=== PATIENT | female | born 1960 | race American Indian/Alaskan Native ===

== ENCOUNTER 2016-10-03 06:23 | Outpatient (CLI) | payer BC ==
--- NOTE | 2016-10-04 08:34 | XRay Report ---
Right thumb: The patient apparently has focal pain over the metacarpal however the bone appears intact with good mineralization. A small cortical cyst is noted at the base of the metacarpal and there is a small erosion at the base of the middle phalanx. The findings otherwise appear generally unremarkable. There are no soft tissue abnormalities identified. Impression: No acute findings. Mild degenerative changes.
== END 2016-10-03 06:24 | disposition home or self-care (01) ==
LOC: XRAY 06:23
PROVIDERS: ATTEND Internal Medicine
DX: M85.48 Solitary bone cyst, other site (principal); M85.88 Other specified disorders of bone density and structure, other site

== ENCOUNTER 2016-11-23 07:29 | Outpatient (CLI) | payer BC ==
--- NOTE | 2016-11-23 16:00 | Ultrasound Report ---
Ultrasound of the right upper quadrant. Findings: In the right lobe of the liver, there is a 2.0 x 1.6 cm somewhat rounded area of increased echogenicity, fairly well circumscribed. No other focal hepatic abnormal this are seen. Multiple gallstones are present. Wall of gallbladder is not thickened. Common bile duct is normal in caliber. The right kidney and pancreas are unremarkable. Impression: 1. Cholelithiasis. 2. 2 x 1.6 cm echogenic structure in the right lobe of the liver probably represents a hemangioma, but is nonspecific.
== END 2016-11-23 07:30 | disposition home or self-care (01) ==
LOC: US 07:29
PROVIDERS: ATTEND Internal Medicine Gastroenterology
DX: K80.20 Calculus of gallbladder without cholecystitis without obstruction (principal)
CPT/HCPCS: 76705

== ENCOUNTER 2016-12-08 11:28 | Outpatient (CLI) | payer BC ==
--- NOTE | 2016-12-08 14:22 | Nuclear Medicine Report ---
HIDA INDICATION: Right liver lesion. Bloating, possible history of stones. COMPARISON: None similar. FINDINGS: Dynamic right upper quadrant imaging performed in the anterior projection over 120 minutes following uneventful intravenous administration of 5 mCi of Technetium 99m Choletec. Prompt and homogenous hepatic radiotracer uptake with subsequent washout seen with gallbladder activity noted reliably at 90 minutes while bowel activity seen conclusively at 30 minutes. Right hemidiaphragm may be elevated. No CCK given due to the current nonavailability with gallbladder ejection fraction not calculated. CONCLUSION: Normal exam, as described. Thank you for the opportunity to participate in this patient's care.
[2016-12-08 14:24] LABS: Blood Urea Nitrogen 15 mg/dL (7-17)
--- NOTE | 2016-12-10 13:30 | Magnetic Resonance Report ---
MRI ABDOMEN WITHOUT AND WITH CONTRAST : 12/08/16 14:00:00 CLINICAL: Liver mass. COMPARISON :11/23/16 ultrasound and 10/03/12 CT abdomen TECHNIQUE: Axial T1 in phase and opposed phase, coronal and axial T2 and axial T2 fat sat sequences plus multiphase postcontrast T1 fat sat sequences on a 1.5 Esme magnet. 15.0 cc of Multihance was injected intravenously for the contrast portion of the exam and consent was obtained prior to the administration of the contrast. FINDINGS: Normal liver size, contour and overall signal. A 1.7 x 1.6 cm slightly irregular mass of the right lobe of the liver at the dome is not changed in size since 2012. It demonstrates minimal enhancement postcontrast. No central enhancement. There is minimal peripheral enhancement which slightly decreases the size of the lesion at five minutes. It is hyperintense on T2 and hypointense on T1. No other liver lesions are identified. The gallbladder and bile ducts are normal. Normal stomach, duodenum, pancreas and spleen. The adrenal glands are normal. Bilateral renal cysts. The largest is in the midportion of the right kidney measures 1.6 cm. No ascites. The aorta and inferior vena cava are normal. Imaged portions of small bowel and colon are normal. IMPRESSION: 1. A benign 1.7 cm right hepatic mass. The enhancement pattern is not typical of a benign cavernous hemangioma but it has not changed in size or shape since 2012. 2. Benign renal cysts.
== END 2016-12-08 11:29 | disposition home or self-care (01) ==
LOC: NM 11:28
PROVIDERS: ATTEND Internal Medicine Gastroenterology
DX: K80.20 Calculus of gallbladder without cholecystitis without obstruction (principal); R14.0 Abdominal distension (gaseous); N28.1 Cyst of kidney, acquired; K76.89 Other specified diseases of liver; Q79.1 Other congenital malformations of diaphragm
CPT/HCPCS: 36415; 74183; 78226; 82565; 84520; A9537; A9577

== ENCOUNTER 2017-01-17 13:14 | Outpatient (CLI) | payer BC ==
--- NOTE | 2017-01-17 14:15 | Cat Scan Report ---
CT of the paranasal sinuses. History: Chronic sinusitis. Findings: The paranasal sinuses are clear. The osteomeatal complexes are patent. No air-fluid levels are seen. There is deviation of the nasal septum to the left. No significant bony findings are seen. The globes are symmetrical. No signs of orbital pathology. Impression: Nasal septal deviation, otherwise normal study.
--- NOTE | 2017-01-17 14:18 | Cat Scan Report ---
CT of the chest without contrast. History: Asthma. Findings: The mediastinum and hilar structures are normal. The lungs are clear. There is no pleural fluid. Extensive osteophytes are seen in the lower dorsal spine. Images which include a portion of the upper abdomen reveal multiple gallstones. Impression: Unremarkable CT of the chest. 2. Incidental findings of multiple gallstones and severe discogenic changes in the lower dorsal spine are described.
== END 2017-01-17 13:15 | disposition home or self-care (01) ==
LOC: CT 13:14
PROVIDERS: ATTEND Family Medicine
DX: J45.20 Mild intermittent asthma, uncomplicated (principal); J32.0 Chronic maxillary sinusitis; M25.78 Osteophyte, vertebrae; J34.2 Deviated nasal septum; K80.20 Calculus of gallbladder without cholecystitis without obstruction
CPT/HCPCS: 70486; 71250

== ENCOUNTER 2017-04-22 08:47 | Emergency (ER) | payer BC ==
[2017-04-22] MEDS ORDERED: ANTIVERT PO ONE (10:02)
--- NOTE | 2017-04-22 10:02 | Emergency Department Report ---
ED Dizziness HPI - General Chief Complaint: Dizziness Stated Complaint: DIZZY,NAUSEA Time Seen by Provider: 04/22/17 09:53 Source: patient Mode of arrival: Ambulatory Limitations: No Limitations - History of Present Illness MD Complaint: dizziness -: This morning Timing: awoke with symptoms Description: sense of movement, nausea History of Same: Yes (3 years ago) Severity: moderate Improves With: remaining still Worsens With: movement, position Associated Symptoms: denies: chest pain - Related Data Home Medications Medication Instructions Recorded Confirmed Last Taken Atenolol/Chlorthalidone [Tenoretic 1 tab PO DAILY 01/30/14 01/30/14 01/30/14 50-25 mg] Previous Rx's Medication Instructions Recorded Last Taken Type Gentamicin 0.3% Ophth Soln 2 drops OP Q4H #1 bottle 01/31/14 Unknown Rx HYDROcodone/APAP 5-325 [[place] 1 each PO Q6HR PRN #15 tablet 01/31/14 Unknown Rx 5/325 mg] Meclizine [Antivert] 25 mg PO TID PRN #30 tablet 04/22/17 Unknown Rx Allergies Allergy/AdvReac Type Severity Reaction Status Date / Time No Known Allergies Allergy Verified 04/22/17 09:05 ED Review of Systems ROS: Stated complaint: DIZZY,NAUSEA Other details as noted in HPI Comment: All other systems reviewed and negative Constitutional: denies: chills, fever ENT: denies: ear pain, throat pain, hearing loss, congestion Respiratory: denies: cough, orthopnea, shortness of breath, SOB with exertion Cardiovascular: denies: chest pain, palpitations, dyspnea on exertion, orthopnea Gastrointestinal: denies: nausea, vomiting Neurological: vertigo. denies: headache, paresthesias ED Past Medical Hx - Past Medical History Hx Hypertension: Yes Hx GERD: Yes ("SILENT REFLUX") Hx Asthma: Yes Additional medical history: ALLERGIES - Surgical History Additional Surgical History: - Social History Smoking Status: Never Smoker Substance Use Type: None - Medications Home Medications: Home Medications Medication Instructions Recorded Confirmed Last Taken Type Atenolol/Chlorthalidone [Tenoretic 1 tab PO DAILY 01/30/14 01/30/14 01/30/14 History 50-25 mg] Gentamicin 0.3% Ophth Soln 2 drops OP Q4H #1 bottle 01/31/14 Unknown Rx HYDROcodone/APAP 5-325 [[place] 1 each PO Q6HR PRN #15 tablet 01/31/14 Unknown Rx 5/325 mg] Meclizine [Antivert] 25 mg PO TID PRN #30 tablet 04/22/17 Unknown Rx ED Physical Exam - General Limitations: No Limitations General appearance: alert, in no apparent distress - Head Head exam: Present: atraumatic, normocephalic - Eye Eye exam: Present: normal appearance, PERRL, EOMI Pupils: Present: normal accommodation - ENT ENT exam: Present: normal exam, normal orophraynx, mucous membranes moist - Neck Neck exam: Present: normal inspection. Absent: tenderness, meningismus, full ROM - Respiratory Respiratory exam: Present: normal lung sounds bilaterally. Absent: respiratory distress, wheezes, rales, rhonchi, stridor, chest wall tenderness, accessory muscle use, decreased breath sounds, prolonged expiratory - Cardiovascular Cardiovascular Exam: Present: regular rate, normal rhythm, normal heart sounds - GI/Abdominal GI/Abdominal exam: Present: soft. Absent: distended, tenderness, guarding, rebound, rigid, normal bowel sounds - Back Exam Back exam: Present: normal inspection. Absent: CVA tenderness (R), CVA tenderness (L) - Neurological Exam Neurological exam: Present: alert, oriented X3, CN II-XII intact, normal gait. Absent: motor sensory deficit, reflexes normal - Skin Skin exam: Present: warm, intact, normal color ED Course Vital Signs 04/22/17 04/22/17 04/22/17 08:58 09:21 09:53 Temperature 98.2 F 98.6 F 98.5 F Pulse Rate 96 H 90 88 Respiratory 17 16 12 Rate Blood Pressure 158/99 Blood Pressure 132/73 130/72 [Left] O2 Sat by Pulse 98 100 97 Oximetry 04/22/17 12:10 Temperature 98.6 F Pulse Rate 91 H Respiratory 19 Rate Blood Pressure Blood Pressure 105/60 [Left] O2 Sat by Pulse 100 Oximetry - Reevaluation(s) Reevaluation #1: 04/22/17 14:19 Patient stated that she is feeling much better dizziness is almost gone advised patient to follow up with her primary care physician. ED Medical Decision Making - Lab Data Result diagrams: 04/22/17 09:49 04/22/17 09:49 Critical care attestation.: If time is entered above; I have spent that time in minutes in the direct care of this critically ill patient, excluding procedure time. ED Disposition Clinical Impression: Dizziness Disposition: DC-01 TO HOME OR SELFCARE Is pt being admited?: No Condition: Stable Instructions: Vertigo (ED) Referrals: PRIMARY CARE, [Primary Care Provider] - 3-5 Days
[2017-04-22 10:06] LABS: Basophils % (Auto) 0.9 % (0.0-1.8); Eosinophils % (Auto) 1.7 % (0.0-4.3); Hematocrit 38.6 % (30.3-42.9); Hemoglobin 12.9 gm/dl (10.1-14.3); Mean Corpuscular HGB Conc 34 % (30-34); Mean Corpuscular Hemoglobin 28 pg (28-32); Mean Corpuscular Volume 82 fl (79-97); Platelet Count 294 K/mm3 (140-440); Red Blood Count 4.68 M/mm3 (3.65-5.03); Red Cell Distribution Width 14.7 % (13.2-15.2); White Blood Count 6.7 K/mm3 (4.5-11.0)
[2017-04-22 10:22] LABS: Anion Gap 16 mmol/L; BUN/Creatinine Ratio 18.57; Blood Urea Nitrogen 13 mg/dL (7-17); Calcium 8.9 mg/dL (8.4-10.2); Carbon Dioxide 26 mmol/L (22-30); Chloride 101.9 mmol/L (98-107); Glucose 110 mg/dL (65-100); Potassium 4.1 mmol/L (3.6-5.0); Sodium 140 mmol/L (137-145)
--- NOTE | 2017-04-22 10:55 | Cat Scan Report ---
CT HEAD WITHOUT CONTRAST: 04/22/17 08:47:00 CLINICAL: Dizziness. TECHNIQUE: 2.5-mm noncontrast scans. COMPARISON:None FINDINGS: The ventricles and sulci are normal for age. No abnormal density. No mass or mass effect. No hemorrhage, edema or extra-axial collection. The sinuses are clear. Normal orbits and soft tissues. The calvarium and skull base are intact. IMPRESSION: Normal study.
[2017-04-22 12:05] LABS: Bacteria,Urine 1+ /HPF (Negative); Bilirubin,Urine NEG (Negative); Blood,Urine NEG (Negative); Ketones,Urine NEG (Negative); Leukocyte Esterase,Urine TR (Negative); Mucus,Urine 1+ /HPF; Nitrite,Urine NEG (Negative); Protein,Urine <15 mg/dL mg/dL (Negative); Urobilinogen,Urine < 2.0 mg/dL (<2.0)
[2017-04-22 12:15] VITALS: BP 105/60
== END 2017-04-22 13:50 | disposition home or self-care (01) ==
LOC: ED 08:47
DX: R42 Dizziness and giddiness (principal); K21.9 Gastro-esophageal reflux disease without esophagitis; J45.909 Unspecified asthma, uncomplicated
CPT/HCPCS: 36415; 70450; 80048; 81001; 82962; 84484; 85025; 93005; 93010

== ENCOUNTER 2018-01-14 13:09 | Outpatient (CLI) | payer BC ==
--- NOTE | 2018-01-14 21:43 | Cat Scan Report ---
FINAL REPORT EXAM: CT SINUSES WO CON HISTORY: CHRONIC SINUSITIS TECHNIQUE: Spiral CT scanning of the paranasal sinuses. Coronal reformations. PRIORS: 17 Jan 2017. FINDINGS: The visualized paranasal sinuses are normally aerated. No abnormal air-fluid levels, hyperostosis or bone destruction. Ostiomeatal units are patent bilaterally. Mild leftward bowing anterior and leftward spurring posterior nasal septum and normal appearing nasal turbinates. Normal nasal choanae, nasopharynx and orbits. Visualized skull base grossly unremarkable. IMPRESSION: 1. No acute findings.
--- NOTE | 2018-01-14 21:49 | Cat Scan Report ---
FINAL REPORT PROCEDURE: CT HEAD/BRAIN WO CON TECHNIQUE: Computerized tomography of the head was performed without contrast material. HISTORY: CHRONIC SINUSITIS COMPARISON: No prior studies are available for comparison. FINDINGS: Skull and scalp: Normal. Paranasal sinuses: Normal. Ventricles and subarachnoid spaces: Normal. Cerebrum: No evidence of hemorrhage, acute infarction or mass . Cerebellum and brainstem: No evidence of hemorrhage, acute infarction or mass. Vasculature: Normal. Comments: None. IMPRESSION: There is no intracranial hemorrhage, edema, mass, mass effect or midline shift. The sinuses are clear.
== END 2018-01-14 13:10 | disposition home or self-care (01) ==
LOC: CT 13:09
PROVIDERS: ATTEND Internal Medicine
DX: J32.0 Chronic maxillary sinusitis (principal); J34.2 Deviated nasal septum; I10 Essential (primary) hypertension; E03.9 Hypothyroidism, unspecified; E78.00 Pure hypercholesterolemia, unspecified; K21.9 Gastro-esophageal reflux disease without esophagitis; J45.20 Mild intermittent asthma, uncomplicated
CPT/HCPCS: 70450; 70486

== ENCOUNTER 2019-01-28 09:57 | Outpatient (CLI) | payer BC ==
[2019-01-28 11:12] LABS: Free T4 (Free Thyroxine) 1.02 ng/dL (0.76-1.46)
== END 2019-01-28 09:58 | disposition home or self-care (01) ==
LOC: LAB 09:57
PROVIDERS: ATTEND Internal Medicine
DX: R94.6 Abnormal results of thyroid function studies (principal); I10 Essential (primary) hypertension; J45.909 Unspecified asthma, uncomplicated; K21.9 Gastro-esophageal reflux disease without esophagitis
CPT/HCPCS: 36415; 84439; 84443; 84480

== ENCOUNTER 2019-06-02 06:28 | Outpatient (CLI) | payer BC ==
[2019-06-02 06:50] LABS: Hemoglobin 13.7 gm/dl (10.1-14.3)
[2019-06-02 07:06] LABS: Mean Corpuscular HGB Conc 34 % (30-34); Mean Corpuscular Volume 83 fl (79-97); Platelet Count 367 K/mm3 (140-440); Red Blood Count 4.94 M/mm3 (3.65-5.03); Red Cell Distribution Width 15.4 % (13.2-15.2)
[2019-06-02 07:10] LABS: Alanine Aminotransferase 14 units/L (7-56); BUN/Creatinine Ratio 21; Blood Urea Nitrogen 17 mg/dL (7-17); Calcium 9.4 mg/dL (8.4-10.2); Chol/HDL Ratio 2.58 %; HDL Cholesterol 58 mg/dL (40-59); Hemolysis Index 22; LDL Cholesterol,Direct 83 mg/dL (50-130)
== END 2019-06-02 06:29 | disposition home or self-care (01) ==
LOC: LAB 06:28
PROVIDERS: ATTEND Internal Medicine
DX: E78.5 Hyperlipidemia, unspecified (principal); I10 Essential (primary) hypertension; D58.2 Other hemoglobinopathies; R79.89 Other specified abnormal findings of blood chemistry; R68.89 Other general symptoms and signs; J45.909 Unspecified asthma, uncomplicated; K21.9 Gastro-esophageal reflux disease without esophagitis
CPT/HCPCS: 36415; 80053; 80061; 83036; 85027

== ENCOUNTER 2019-09-02 09:16 | Outpatient (CLI) | payer BC ==
[2019-09-02 10:27] LABS: Blood Urea Nitrogen 17 mg/dL (7-17)
--- NOTE | 2019-09-02 12:57 | Cat Scan Report ---
CT abdomen w con INDICATION: ABDOMINAL PAIN. TECHNIQUE: All CT scans at this location are performed using CT dose reduction for ALARA by means of automated e xposure control. COMPARISON: No prior CT exams. Compared with MRI abdomen dated 12/08/2016 FINDINGS: Lung bases are clear. 1.7 cm low-attenuation lesion in the superior right hepatic lobe demonstrates p eripheral enhancement, suggestive of hemangioma. (No delayed images were obtained.) No additional rex er lesions. Spleen, pancreas, kidneys and adrenals are negative. Incidental bilateral renal cysts. Gallbladder co ntains at least one fairly large stone. No appreciable gallbladder wall thickening or pericholecystic edema. Abdominal aorta is normal in size. No adenopathy. Pelvis Normal appendix. Urinary bladder and distal ureters are negative. Uterus and ovaries appear unremarka ble. No free fluid or patient. No significant skeletal lesions. IMPRESSION: 1. 1.7 cm right hepatic lobe lesion is unchanged since November 2016 and is thought to represent a benig n hemangioma. 2. Cholelithiasis without evidence of cholecystitis. 3. No acute abnormalities. Signer Name: Alejandro Burgos MD Signed: 09/02/2019 12:53 PM Workstation Name: [id number]
== END 2019-09-02 09:17 | disposition home or self-care (01) ==
LOC: CT 09:16
PROVIDERS: ATTEND Internal Medicine
DX: K80.20 Calculus of gallbladder without cholecystitis without obstruction (principal)
CPT/HCPCS: 36415; 74160; 82565; 84520; Q9967

== ENCOUNTER 2019-10-29 08:31 | Day surgery (SDC) | payer BC ==
[~2019-10-29 08:31] MED LIST: SODIUM CHLORIDE 0.9% 1000 ML 1,000 ML IV SCH
--- NOTE | 2019-10-29 09:45 | Anesthesia Day of Surgery ---
Anesthesia Day of Surgery - Day of Surgery Patient Examined: Yes Patient H&P Reviewed: Yes Patient is NPO: Yes
--- NOTE | 2019-10-29 09:46 | Anesthesia Consultation ---
Anesthesia Consult and Med Hx Date of service: 10/29/19 - Airway Anesthetic Teeth Evaluation: Chipped, Partials ROM Head & Neck: Adequate Mental/Hyoid Distance: Adequate Mallampati Class: Class II Intubation Access Assessment: Good - Pulmonary Exam CTA: Yes - Cardiac Exam Cardiac Exam: RRR - Pre-Operative Health Status ASA Pre-Surgery Classification: ASA2 Proposed Anesthetic Plan: MAC - Pulmonary Hx Asthma: Yes - Cardiovascular System Hx Hypertension: Yes
[2019-10-29] MEDS ORDERED: propofoL 200 MG/20 ML VIAL IV ONE ×2 (11:23)
--- NOTE | 2019-10-29 11:42 | Short Stay Summary ---
Short Stay Documentation Date of service: 10/29/19 - History Principal diagnosis: Chronic GERD; screening for colorectal cancer H&P: obtained from office Past Medical History: GERD, other (asthma) Past Surgical History: Other (no changes) Social history: no significant social history - Allergies and Medications Current Medications: Allergies No Known Allergies Allergy (Verified 04/22/17 09:05) Home Medications Medication Instructions Recorded Confirmed Last Taken Type Bisoprolol-Hctz 10-6.25 mg Tab 1 tab PO DAILY 10/29/19 10/29/19 10/29/19 History Lisinopril 10 mg PO DAILY 10/29/19 10/29/19 10/29/19 History Montelukast 10 mg PO DAILY 10/29/19 10/29/19 10/19/19 History Pantoprazole 40 mg PO DAILY 10/29/19 10/29/19 10/19/19 History Vitamin D3 3,000 unit 1 tab PO DAILY 10/29/19 10/29/19 10/19/19 History Zyrtec 10mg tab 1 tab PO DAILY 10/29/19 10/29/19 10/19/19 History Active Medications Sodium Chloride (Nacl 0.9% 1000 Ml) 1,000 mls @ 50 mls/hr IV DIRECT VIOLETTA Last Admin: 10/29/19 09:56 Dose: 50 mls/hr Documented by: - Physical exam General appearance: no acute distress Lungs: Clear to auscultation Heart: Regular rate Gastrointestinal: normal - Brief post op/procedure progress note Date of procedure: 10/29/19 Pre-op diagnosis: chronic GERD, screening for colorectal cancer Post-op diagnosis: same Procedure: EGD Colonoscopy with biopsy polypectomy Anesthesia: MAC Findings: EGD: normal Colonoscopy: cecal polyp removed Surgeon: LIZZY PAYAN Estimated blood loss: minimal Pathology: list (Jar A - cecal polyp) Specimen disposition: to lab Condition: stable - Disposition Condition at discharge: Good Disposition: DC-01 TO HOME OR SELFCARE Short Stay Discharge Plan Follow up with: BRODERICK CANALES MD [Primary Care Provider] - 7 Days
--- NOTE | 2019-10-29 11:43 | Operative Report ---
Operative Report Operative Report: Esophagogastroduodenoscopy Procedure Note Date of procedure: 10/29/2019 Endoscopist: Serafin Randle Pre-op diagnosis/indication: GERD, abdominal pain Post-op diagnosis: Normal endoscopy MEDICATIONS: MAC COMPLICATIONS: No immediate complications ESTIMATED BLOOD LOSS: None DESCRIPTION OF PROCEDURE: After consent was obtained, the patient was placed in the left lateral decubitis position. The olympus endoscope was inserted into the patient's mouth under direct vision and advanced to the 2nd portion of the duodenum without difficulty. The patient tolerated the procedure well. The views of the mucosa were good. The patient's vital signs were monitored continuously throughout the procedure. FINDINGS: The esophagus appeared normal. The stomach appeared normal. The visualized portion of the duodenum appeared normal. IMPRESSION: 1. Normal upper endoscopy RECOMMENDATIONS: -continue current medications -follow-up in GI clinic as scheduled
--- NOTE | 2019-10-29 11:45 | Operative Report ---
Operative Report Operative Report: Colonoscopy Procedure Note with biopsy polypectomy Date of procedure: 10/29/2019 Endoscopist: Serafin Randle Pre-op diagnosis/indication: Screening for colorectal cancer Post-op diagnosis: Colon polyp removed MEDICATIONS: MAC COMPLICATIONS: No immediate complications ESTIMATED BLOOD LOSS: Minimal DESCRIPTION OF PROCEDURE: After consent was obtained, the patient was placed in the left lateral decubitis position. The olympus colonoscope was inserted into the rectum and advanced to the cecum without difficulty. The patient tolerated the procedure well. The views of the mucosa were good. The quality of prep was good. The patients vital signs were monitored continuously throughout the p rocedure. FINDINGS: There was an ~2 mm sessile polyp in the cecum. The polyp was removed with cold biopsy forceps and retrieved. Internal hemorrhoids were visualized on retro-flexion view. IMPRESSION: 1. Small cecal polyp removed with cold biopsy forceps 2. Internal hemorrhoids RECOMMENDATIONS: -follow-up pathology -repeat colonoscopy in 5 years for surveillance
[2019-10-29 12:21] VITALS: BP 135/83
--- NOTE | 2019-10-29 14:40 | Post Anesthesia Evaluation ---
- Post Anesthesia Evaluation Patient Participated: Yes Airway Patent: Yes Stable Respiratory Function: Yes Nausea/Vomiting: No Temp > 96.8F: Yes Pain Manageable: Yes Adequeate Hydration: Yes Anesthesia Complications: No Block Receding Appropriately: Not Applicable Patient on Ventilator: No
== END 2019-10-29 08:32 | disposition home or self-care (01) ==
LOC: GIO 08:31
PROVIDERS: ATTEND Internal Medicine Gastroenterology
DX: R10.9 Unspecified abdominal pain (principal); K21.9 Gastro-esophageal reflux disease without esophagitis; D12.0 Benign neoplasm of cecum; R14.0 Abdominal distension (gaseous); K59.09 Other constipation; I10 Essential (primary) hypertension; K64.8 Other hemorrhoids; Z79.899 Other long term (current) drug therapy; J45.909 Unspecified asthma, uncomplicated; Z98.51 Tubal ligation status; Z98.890 Other specified postprocedural states; Z98.891 History of uterine scar from previous surgery
CPT/HCPCS: 43235; 45380; 88305; J2704; J7030

== ENCOUNTER 2020-02-03 22:58 | Emergency (ER) | payer BC ==
--- NOTE | 2020-02-03 23:54 | XRay Report ---
RIGHT TOES 4 VIEWS INDICATION / CLINICAL INFORMATION: toe deformitiy COMPARISON: None available. FINDINGS: BONES / JOINT(S): There is a fracture of the proximal phalanx of the fourth toe. There is dislocation of the fourth toe at the PIP joint with lateral angulation. No other fractures are seen. No signific ant arthritis. SOFT TISSUES: There is mild soft tissue swelling ADDITIONAL FINDINGS: None. Signer Name: Jeffrey Escobar MD Signed: 02/03/2020 11:50 PM Workstation Name: [id number]
[2020-02-04] MEDS ORDERED: BUPIVACAINE/PF (0.5%) 5 MG/1 ML 10 ML VIAL INFILTRATI ONE (00:46)
[2020-02-04] MEDS ORDERED: LIDOCAINE-MPF (1%) 10 MG/1 ML VIAL 5 ML INFILTRATI ONE (00:46)
--- NOTE | 2020-02-04 01:47 | Emergency Department Report ---
ED Lower Extremity HPI - General Chief Complaint: Extremity Injury, Lower Stated Complaint: RIGHT TOE PAIN Time Seen by Provider: 02/04/20 00:22 Source: patient Mode of arrival: Ambulatory Limitations: No Limitations - History of Present Illness Initial Comments: Patient is a 59-year-old female presents emergency room with complaints of a right fourth toe injury that occurred around 9 PM tonight. She states that she was walking barefoot and hit her toe against a wooden chair at home. She has an obvious deformity to the right fourth toe. She states that she is still able to partially move the toe. She denies any numbness or weakness. She denies ever injuring this right foot or toe in the past. She has a past medical history of asthma, GERD, hypertension. She denies any allergies to medications. - Related Data Home Medications Medication Instructions Recorded Confirmed Last Taken Bisoprolol-Hctz 10-6.25 mg Tab 1 tab PO DAILY 10/29/19 10/29/19 10/29/19 Lisinopril 10 mg PO DAILY 10/29/19 10/29/19 10/29/19 Montelukast 10 mg PO DAILY 10/29/19 10/29/19 10/19/19 Pantoprazole 40 mg PO DAILY 10/29/19 10/29/19 10/19/19 Vitamin D3 3,000 unit 1 tab PO DAILY 10/29/19 10/29/19 10/19/19 Zyrtec 10mg tab 1 tab PO DAILY 10/29/19 10/29/19 10/19/19 Previous Rx's Medication Instructions Recorded Last Taken Type traMADoL [Ultram 50 MG tab] 50 mg PO Q6HR PRN #10 tablet 02/04/20 Unknown Rx Allergies Allergy/AdvReac Type Severity Reaction Status Date / Time No Known Allergies Allergy Verified 04/22/17 09:05 ED Review of Systems ROS: Stated complaint: RIGHT TOE PAIN Other details as noted in HPI Comment: All other systems reviewed and negative ED Past Medical Hx - Past Medical History Previous Medical History?: Yes Hx Hypertension: Yes Hx GERD: Yes Hx Asthma: Yes Additional medical history: ALLERGIES - Surgical History Past Surgical History?: Yes Additional Surgical History: x1 - Social History Smoking Status: Never Smoker Substance Use Type: None - Medications Home Medications: Home Medications Medication Instructions Recorded Confirmed Last Taken Type Bisoprolol-Hctz 10-6.25 mg Tab 1 tab PO DAILY 10/29/19 10/29/19 10/29/19 History Lisinopril 10 mg PO DAILY 10/29/19 10/29/19 10/29/19 History Montelukast 10 mg PO DAILY 10/29/19 10/29/19 10/19/19 History Pantoprazole 40 mg PO DAILY 10/29/19 10/29/19 10/19/19 History Vitamin D3 3,000 unit 1 tab PO DAILY 10/29/19 10/29/19 10/19/19 History Zyrtec 10mg tab 1 tab PO DAILY 10/29/19 10/29/19 10/19/19 History traMADoL [Ultram 50 MG tab] 50 mg PO Q6HR PRN #10 tablet 02/04/20 Unknown Rx ED Physical Exam - General Limitations: No Limitations General appearance: alert, in no apparent distress - Head Head exam: Present: atraumatic, normocephalic - Eye Eye exam: Present: normal appearance - ENT ENT exam: Present: mucous membranes moist - Extremities Exam Extremities exam: Present: other (obvious deformity to the right 4th toe, there is edema and ttp of the right 4th toe, brisk cap refill, neurovascularly intact, no ttp of the other toes or the right foot, FROM of the right ankle and foot) - Neurological Exam Neurological exam: Present: alert, oriented X3 - Psychiatric Psychiatric exam: Present: normal affect, normal mood - Skin Skin exam: Present: warm, dry ED Course Vital Signs 02/03/20 02/04/20 23:02 02:41 Temperature 98.1 F Pulse Rate 101 H 96 H Respiratory 18 16 Rate Blood Pressure 179/93 O2 Sat by Pulse 96 Oximetry - Orthopedic Joint Reduction Joint #1 Consent Obtained: verbal consent Time Out Performed: Yes Side: right Joint Reduction Location: toe (4th) Analgesia: digital block Local Anesthetic Used: Lidocaine 1%, Bupivicaine 0.5% Amount of Anesthetic Used (mls): 5 (2.5 cc of 1% lidocaine and 2.5 of 0.5% bupivacaine) Technique Used: direct manipulation Post-Reduction Neuro Exam: intact Post-Reduction Vascular Exam: intact Post Reduction X-Ray Obtained: Yes Post Reduction X-Ray Results: reduced Splint Applied: Yes Patient Tolerated Procedure: well, no complications ED Lower Extremity MDM - Radiology Data Radiology results: report reviewed, image reviewed RIGHT TOES 3 VIEWS INDICATION / CLINICAL INFORMATION: post reduction COMPARISON: 02/03/2020 FINDINGS: BONES / JOINT(S): Reduction of dislocation of the fourth toe. Fracture of the proximal phalanx of the fourth toe is again noted No significant arthritis. SOFT TISSUES: There is soft tissue swelling ADDITIONAL FINDINGS: None. Signer Name: Jeffrey Escobar MD Signed: 02/04/2020 1:51 AM Workstation Name: [id number] Transcribed By: SS Dictated By: Jeffrey Escobar MD Electronically Authenticated By: Jeffrey Escobar MD Signed Date/Time: 02/04/20 0151 DD/ 0150 TD/TT: RIGHT TOES 4 VIEWS INDICATION / CLINICAL INFORMATION: toe deformitiy COMPARISON: None available. FINDINGS: BONES / JOINT(S): There is a fracture of the proximal phalanx of the fourth toe. There is dislocation of the fourth toe at the PIP joint with lateral angulation. No other fractures are seen. No significant arthritis. SOFT TISSUES: There is mild soft tissue swelling ADDITIONAL FINDINGS: None. Signer Name: Jeffrey Escobar MD Signed: 02/03/2020 11:50 PM Workstation Name: [id number] Transcribed By: Dictated By: Jeffrey Escobar MD Electronically Authenticated By: Jeffrey Escobar MD Signed Date/Time: 02/03/20 2350 DD/ 2348 TD/TT: - Medical Decision Making Patient is a 59-year-old female presents emergency room with complaints of a right fourth toe injury that occurred around 9 PM tonight. She states that she was walking barefoot and hit her toe against a wooden chair at home. She has an obvious deformity to the right fourth toe. She states that she is still able to partially move the toe. She denies any numbness or weakness. She denies ever injuring this right foot or toe in the past. She has a past medical history of asthma, GERD, hypertension. She denies any allergies to medications. VSS. on exam: obvious deformity to the right 4th toe, there is edema and ttp of the right 4th toe, brisk cap refill, neurovascularly intact, no ttp of the other toes or the right foot, FROM of the right ankle and foot. XR right toes: There is a fracture of the proximal phalanx of the fourth toe. There is dislocation of the fourth toe at the PIP joint with lateral angulation. No other fractures are seen. No significant arthritis. SOFT TISSUES: There is mild soft tissue swelling. Toe reduction performed per procedure note without any complications. post reduction XR of the right toes shows: Reduction of dislocation of the fourth toe. Fracture of the proximal phalanx of the fourth toe is again noted No significant arthritis. SOFT TISSUES: There is soft tissue swelling. Shiva taping was performed by RN, patient placed in postop surgical shoe, patient given crutches. Patient given prescription for tramadol. Advised patient Please take medication as prescribed as needed. Do not drive or operate heavy machinery while taking pain medication. May ice for 15 minutes at a time, rest, elevate the leg. Please follow-up with orthopedic doctor, please do not bear weight on the right foot. Return to emergency room for any new or worsening symptoms. - Differential Diagnosis Strain, sprain, fracture, dislocation Critical care attestation.: If time is entered above; I have spent that time in minutes in the direct care of this critically ill patient, excluding procedure time. ED Disposition Clinical Impression: Dislocation of fourth toe, right, closed Qualifiers: Encounter type: initial encounter Qualified Code(s): S93.104A - Unspecified dislocation of right toe(s), initial encounter Fracture of fourth toe, right, closed Qualifiers: Encounter type: initial encounter Qualified Code(s): S92.501A - Displaced unspecified fracture of right lesser toe(s), initial encounter for closed fracture Disposition: DC-01 TO HOME OR SELFCARE Is pt being admited?: No Does the pt Need Aspirin: No Condition: Stable Instructions: Toe Fracture (ED) Additional Instructions: Please take medication as prescribed as needed. Do not drive or operate heavy machinery while taking pain medication. May ice for 15 minutes at a time, rest, elevate the leg. Please follow-up with orthopedic doctor, please do not bear weight on the right foot. Return to emergency room for any new or worsening symptoms. Prescriptions: traMADoL [Ultram 50 MG tab] 50 mg PO Q6HR PRN #10 tablet PRN Reason: Pain , Severe (7-10) Referrals: DELFINA SHELBY MD [Staff Physician] - 3-5 Days Time of Disposition: 02:01 Print Language: JAPANESE
--- NOTE | 2020-02-04 01:55 | XRay Report ---
RIGHT TOES 3 VIEWS INDICATION / CLINICAL INFORMATION: post reduction COMPARISON: 02/03/2020 FINDINGS: BONES / JOINT(S): Reduction of dislocation of the fourth toe. Fracture of the proximal phalanx of the fourth toe is again noted No significant arthritis. SOFT TISSUES: There is soft tissue swelling ADDITIONAL FINDINGS: None. Signer Name: Jeffrey Escobar MD Signed: 02/04/2020 1:51 AM Workstation Name: [id number]
[2020-02-04 01:59] VITALS: BP 179/93
== END 2020-02-04 02:42 | disposition home or self-care (01) ==
LOC: ED 22:58 → EEVIPCON 22:58 → ED 02-04 02:42
DX: S92.511A Displaced fracture of proximal phalanx of right lesser toe(s), initial encounter for closed fracture (principal); I10 Essential (primary) hypertension; K21.9 Gastro-esophageal reflux disease without esophagitis; Z98.890 Other specified postprocedural states; Z79.899 Other long term (current) drug therapy; W22.03XA Walked into furniture, initial encounter; Y93.89 Activity, other specified; Y92.89 Other specified places as the place of occurrence of the external cause; Y99.8 Other external cause status

== ENCOUNTER 2020-06-04 11:39 | Emergency (ER) | payer BC ==
--- NOTE | 2020-06-04 12:20 | Emergency Department Report ---
ED General Adult HPI - General Chief complaint: Arrhythmia/Palpitations Stated complaint: HEART REATE HIGH Time Seen by Provider: 06/04/20 12:00 Source: patient Mode of arrival: Ambulatory Limitations: No Limitations - History of Present Illness Initial comments: The patient presents to the emergency department with a chief complaint of elevated heart rate. 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 Patient states at that time a heart rate was 160 bpm. Patient denies any chest pain or shortness of breath with this tachycardia. Patient states probably 2 hours prior to this incident she says she felt her heart fluttering. She states this has happened in the past and she actually saw her doctor on Sunday but did not mention the issues with tachycardia to him. Patient also complains of headaches that been present for the last 2 weeks and denies them being the worst headache of her life but states they have been frequent and she cannot resolving with medications at home. Patient denies chest pain, shortness of breath, or abdominal pain. -: Sudden Location: head Severity scale (0 -10): 5 Quality: other (throbbing) Consistency: constant Improves with: none Worsens with: none Associated Symptoms: denies other symptoms Treatments Prior to Arrival: none - Related Data Home Medications Medication Instructions Recorded Confirmed Last Taken Bisoprolol-Hctz 10-6.25 mg Tab 1 tab PO DAILY 10/29/19 10/29/19 10/29/19 Lisinopril 10 mg PO DAILY 10/29/19 10/29/19 10/29/19 Montelukast 10 mg PO DAILY 10/29/19 10/29/19 10/19/19 Pantoprazole 40 mg PO DAILY 10/29/19 10/29/19 10/19/19 Vitamin D3 3,000 unit 1 tab PO DAILY 10/29/19 10/29/19 10/19/19 Zyrtec 10mg tab 1 tab PO DAILY 10/29/19 10/29/19 10/19/19 Previous Rx's Medication Instructions Recorded Last Taken Type traMADoL [Ultram 50 MG tab] 50 mg PO Q6HR PRN #10 tablet 02/04/20 Unknown Rx Ibuprofen [Motrin] 800 mg PO Q8HR PRN #30 tablet 06/04/20 Unknown Rx Allergies Allergy/AdvReac Type Severity Reaction Status Date / Time No Known Allergies Allergy Verified 06/04/20 11:54 ED Review of Systems ROS: Stated complaint: HEART REATE HIGH Other details as noted in HPI Constitutional: denies: chills, fever Eyes: denies: eye pain, eye discharge, vision change ENT: denies: ear pain, throat pain Respiratory: denies: cough, shortness of breath, wheezing Cardiovascular: other (Tachycardia). denies: chest pain, palpitations Endocrine: no symptoms reported Gastrointestinal: denies: abdominal pain, nausea, diarrhea Genitourinary: denies: urgency, dysuria, discharge Musculoskeletal: denies: back pain, joint swelling, arthralgia Skin: denies: rash, lesions Neurological: headache. denies: weakness, paresthesias Psychiatric: denies: anxiety, depression Hematological/Lymphatic: denies: easy bleeding, easy bruising ED Past Medical Hx - Past Medical History Previous Medical History?: Yes Hx Hypertension: Yes Hx GERD: Yes Hx Asthma: Yes Additional medical history: ALLERGIES - Surgical History Past Surgical History?: Yes Additional Surgical History: x1 - Social History Smoking Status: Never Smoker Substance Use Type: None - Medications Home Medications: Home Medications Medication Instructions Recorded Confirmed Last Taken Type Bisoprolol-Hctz 10-6.25 mg Tab 1 tab PO DAILY 10/29/19 10/29/19 10/29/19 History Lisinopril 10 mg PO DAILY 10/29/19 10/29/19 10/29/19 History Montelukast 10 mg PO DAILY 10/29/19 10/29/19 10/19/19 History Pantoprazole 40 mg PO DAILY 10/29/19 10/29/19 10/19/19 History Vitamin D3 3,000 unit 1 tab PO DAILY 10/29/19 10/29/19 10/19/19 History Zyrtec 10mg tab 1 tab PO DAILY 10/29/19 10/29/19 10/19/19 History traMADoL [Ultram 50 MG tab] 50 mg PO Q6HR PRN #10 tablet 02/04/20 Unknown Rx Ibuprofen [Motrin] 800 mg PO Q8HR PRN #30 tablet 06/04/20 Unknown Rx ED Physical Exam - General Limitations: No Limitations ED Course Vital Signs 06/04/20 06/04/20 06/04/20 11:51 12:00 12:15 Temperature 98.9 F Pulse Rate 129 H 126 H Respiratory 16 15 16 Rate Blood Pressure 148/75 145/74 O2 Sat by Pulse 99 94 99 Oximetry 06/04/20 06/04/20 06/04/20 12:30 13:00 13:33 Temperature Pulse Rate 116 H 124 H Respiratory 13 26 H Rate Blood Pressure 128/55 131/56 128/55 O2 Sat by Pulse 94 94 85 Oximetry 06/04/20 14:00 Temperature Pulse Rate 107 H Respiratory 17 Rate Blood Pressure 132/75 O2 Sat by Pulse 93 Oximetry ED Medical Decision Making - Lab Data Result diagrams: 06/04/20 12:38 06/04/20 12:38 - EKG Data EKG shows normal: sinus rhythm Rate: tachycardia - EKG Data Interpretation: other (Inverted T waves diffusely throughout leads I, lead II, V4, V5, V6) - Radiology Data Radiology results: report reviewed - Medical Decision Making Patient received 2 L of fluid and on my repeat evaluation of the patient at 2:30 PM her heart rate was 98 bpm Discussed results with patient Critical care attestation.: If time is entered above; I have spent that time in minutes in the direct care of this critically ill patient, excluding procedure time. ED Disposition Clinical Impression: Tachycardia, Headache Disposition: - TO HOME OR SELFCARE Is pt being admited?: No Does the pt Need Aspirin: No Condition: Stable Instructions: Acute Headache (ED) Additional Instructions: return if worse Prescriptions: Ibuprofen [Motrin] 800 mg PO Q8HR PRN #30 tablet PRN Reason: Headache Referrals: PRIMARY CAREMD [Primary Care Provider] - 3-5 Days CHRIS SIMONS MD [Staff Physician] - 3-5 Days Time of Disposition: 14:43
--- NOTE | 2020-06-04 12:40 | Cat Scan Report ---
CT BRAIN: 06/04/2020 INDICATION / CLINICAL INFORMATION: headache. COMPARISON: 10/13/2019 FINDINGS: BRAIN/INTRACRANIAL STRUCTURES: Unenhanced CT images of the brain demonstrate no evidence of acute int racranial abnormality. Ventricles and sulci are normal in size and shape. There is no evidence of hemorrhage or mass. There are no abnormal extra-axial fluid collections. EXTRACRANIAL STRUCTURES: Unremarkable. IMPRESSION: Negative unenhanced CT of the brain. No change when compared to 10/13/[address] scans at this location are performed using dose reduction to ALARA by means of automated expos ure control. Signer Name: Roscoe Rich MD Signed: 06/04/2020 12:36 PM Workstation Name: [id number]
--- NOTE | 2020-06-04 13:02 | XRay Report ---
CHEST 1 VIEW 06/04/2020 11:52 AM INDICATION / CLINICAL INFORMATION: tachycardia. COMPARISON: CT chest dated 01/17/2017. FINDINGS: SUPPORT DEVICES: None. HEART / MEDIASTINUM: No significant abnormality. LUNGS / PLEURA: No significant pulmonary or pleural abnormality. No pneumothorax. ADDITIONAL FINDINGS: No significant additional findings. IMPRESSION: No acute cardiopulmonary abnormality. Signer Name: Andres Gordon MD Signed: 06/04/2020 12:57 PM Workstation Name: [id number]
[2020-06-04 13:09] LABS: Basophils # (Auto) 0.1 K/mm3 (0.0-0.1); Basophils % (Auto) 0.7 % (0.0-1.8); Eosinophils # (Auto) 0.2 K/mm3 (0.0-0.4); Eosinophils % (Auto) 1.9 % (0.0-4.3); Hemoglobin 12.8 gm/dl (10.1-14.3); Lymphocytes # (Auto) 2.5 K/mm3 (1.2-5.4); Lymphocytes % (Auto) 29.3 % (13.4-35.0); Mean Corpuscular HGB Conc 33 % (30-34); Mean Corpuscular Volume 85 fl (79-97); Monocytes # (Auto) 0.4 K/mm3 (0.0-0.8); Platelet Count 289 K/mm3 (140-440); Red Blood Count 4.57 M/mm3 (3.65-5.03); Red Cell Distribution Width 15.4 % (13.2-15.2)
[2020-06-04 13:32] LABS: Alanine Aminotransferase 15 units/L (7-56); BUN/Creatinine Ratio 25; Blood Urea Nitrogen 20 mg/dL (7-17); Calcium 9.3 mg/dL (8.4-10.2); Hemolysis Index 0
[2020-06-04] MEDS ORDERED: SODIUM CHLORIDE 0.9% 1000 ML 2,000 ML ONE (14:01)
[2020-06-04] MEDS ORDERED: SODIUM CHLORIDE 0.9% 1000 ML 2,000 ML IV ONE (14:06)
[2020-06-04] MEDS ORDERED: methylPREDNISolone Sod Succinate 125 MG/2 ML INJ ONE (15:17)
[2020-06-04] MEDS ORDERED: diphenhydrAMINE 25 MG CAP PO ONE ×2 (15:18→15:23)
[2020-06-04] MEDS ORDERED: methylPREDNISolone Sod Succinate 125 MG/2 ML INJ IM ONE (15:23)
[2020-06-04] MEDS ORDERED: methylPREDNISolone Sod Succinate 40 MG/1 ML INJ IV ONE (15:30)
[2020-06-04 15:33] VITALS: BP 130/65
== END 2020-06-04 16:37 | disposition home or self-care (01) ==
LOC: ED 11:39
DX: R00.0 Tachycardia, unspecified (principal); R51 Headache; I10 Essential (primary) hypertension; K21.9 Gastro-esophageal reflux disease without esophagitis; M19.90 Unspecified osteoarthritis, unspecified site; Z79.899 Other long term (current) drug therapy
CPT/HCPCS: 36415; 70450; 71045; 80053; 83735; 84436; 84443; 85025; 93005; 96361; 96374; 99284; J2930; J7030

== ENCOUNTER 2020-06-16 08:36 | Outpatient (CLI) | payer BC | END 2020-06-16 08:37 | disposition home or self-care (01) | LOC: ECHO 08:36 | PROVIDERS: ATTEND Internal Medicine Cardiovascular Disease | DX: I51.7 Cardiomegaly (principal) | CPT/HCPCS: 93306 ==

== ENCOUNTER 2020-09-01 07:56 | Outpatient (CLI) | payer BC ==
--- NOTE | 2020-09-01 08:47 | Cat Scan Report ---
CT SINUSES HISTORY: Nasal polyp COMPARISON: 01/17/2017 TECHNIQUE: Axial images of the sinuses were obtained. Coronal reformats were generated. All CT scans at this location are performed using CT dose reduction for ALARA by means of automated exposure cont rol. CONTRAST: None. FINDINGS: Nasal septum: No significant deviation. Paranasal sinuses: Slight leftward deviation. Unchanged. Ostiomeatal complex: No significant abnormality. Frontal Recesses: Clear. Sphenoethmoidal Recesses: Clear. Anatomical Variants: None appreciated. Visualized mastoid air cells: No significant abnormality. Visualized intracranial space: No significant abnormality. Visualized orbits: No significant abnormality. Additional findings: None. IMPRESSION: 1. No significant nasal polyps identified. 2. No significant sinusitis or obstruction of paranasal sinus drainage pathways. Signer Name: Wilber Ochoa MD Signed: 09/01/2020 8:42 AM Workstation Name: [id number]
[2020-09-01 09:46] LABS: Basophils # (Auto) 0.1 K/mm3 (0.0-0.1); Basophils % (Auto) 0.7 % (0.0-1.8); Eosinophils # (Auto) 0.3 K/mm3 (0.0-0.4); Eosinophils % (Auto) 4.1 % (0.0-4.3); Hematocrit 37.3 % (30.3-42.9); Hemoglobin 12.3 gm/dl (10.1-14.3); Lymphocytes # (Auto) 2.8 K/mm3 (1.2-5.4); Lymphocytes % (Auto) 33.9 % (13.4-35.0); Mean Corpuscular HGB Conc 33 % (30-34); Mean Corpuscular Volume 84 fl (79-97); Monocytes # (Auto) 0.4 K/mm3 (0.0-0.8); Platelet Count 305 K/mm3 (140-440); Red Blood Count 4.44 M/mm3 (3.65-5.03); Red Cell Distribution Width 15.5 % (13.2-15.2)
[2020-09-01 10:08] LABS: Alanine Aminotransferase 16 units/L (7-56); Albumin 3.6 g/dL (3.9-5); Blood Urea Nitrogen 14 mg/dL (7-17); Chol/HDL Ratio 2.72 %; HDL Cholesterol 51 mg/dL (40-59); Hemolysis Index 3; LDL Cholesterol,Direct 74 mg/dL (50-130)
[2020-09-01 10:10] LABS: BUN/Creatinine Ratio 20
== END 2020-09-01 07:57 | disposition home or self-care (01) ==
LOC: CT 07:56
PROVIDERS: ATTEND Otolaryngology
DX: J33.0 Polyp of nasal cavity (principal)
CPT/HCPCS: 36415; 70486; 80053; 80061; 83036; 85025

== ENCOUNTER 2020-10-06 09:18 | Outpatient (CLI) | payer BC ==
--- NOTE | 2020-10-06 10:43 | Magnetic Resonance Report ---
MRI lumbar spine without contrast INDICATION: Right leg pain in back pain TECHNIQUE: Axial sagittal images FINDINGS: Heterogeneous marrow signal seen throughout. Advanced endplate changes in the lower lumbar spine. Conus appears normal. L1-2: No spinal canal narrowing or neuroforaminal narrowing. L2-L3: Disc desiccation posterior disc bulge. No significant neuroforaminal narrowing or canal narrow ing. L3-L4: Disc desiccation with posterior disc bulge/herniation. There is mild to moderate left lateral recess narrowing with mild left neuroforaminal narrowing. L4-L5: Advanced endplate changes with disc desiccation. Posterior disc herniation slightly asymmetric to the left. Moderate bilateral lateral recess narrowing. Mild left neuroforaminal narrowing. Mild t o moderate canal narrowing. L5-S1: Disc desiccation with advanced endplate change. Posterior disc herniation with severe bilatera l lateral recess narrowing and neuroforaminal narrowing. IMPRESSION: Multilevel discogenic degenerative change most significant at L4-L5 and L5-S1. Please see above. Signer Name: Albert Butler MD Signed: 10/06/2020 10:39 AM Workstation Name: [id number]
== END 2020-10-06 09:19 | disposition home or self-care (01) ==
LOC: MRI 09:18
PROVIDERS: ATTEND Internal Medicine
DX: M47.817 Spondylosis without myelopathy or radiculopathy, lumbosacral region (principal); M51.37 Other intervertebral disc degeneration, lumbosacral region; M48.07 Spinal stenosis, lumbosacral region
CPT/HCPCS: 72148

== ENCOUNTER 2020-12-27 08:01 | Outpatient (CLI) | payer BC ==
--- NOTE | 2020-12-27 09:44 | Ultrasound Report ---
LEFT DIGITAL DIAGNOSTIC MAMMOGRAM WITH CAD , 12/27/2020 LEFT LIMITED BREAST ULTRASOUND CLINICAL INFORMATION / INDICATION: Left breast pain TECHNIQUE: Digital left mammographic imaging was performed. Limited ultrasound was performed. This ex amination was interpreted with the benefit of Computer-Aided Detection (CAD) analysis. COMPARISON: 03/31/2020, 03/14/2019 FINDINGS: Breast Density: The breasts are almost entirely fatty. MAMMOGRAPHIC FINDINGS: No dominant mass, suspicious calcifications, or architectural distortion in th e left breast. There is no mammographic abnormality to account for the patient's complaint of left br east pain. There is no interval change from prior mammogram exams. ULTRASOUND FINDINGS: Targeted ultrasound evaluation was performed of the area of interest. Sonograp hic evaluation of the left breast, corresponding to area of pain, does not demonstrate any mass, cyst , or suspicious shadowing. IMPRESSION: No mammographic or sonographic evidence of malignancy in the left breast. There is no katy mographic or sonographic abnormality to account for the patient's complaint of left breast pain. Follow up recommendation: Routine yearly. Clinical correlation for left breast pain. BI-RADS Category 2: Benign. A "normal" or negative report should not discourage follow up or biopsy of a clinically significant f inding. A written summary of these findings will be mailed to the patient. The patient will be entered into a mammography reporting system which will generate a reminder letter for the patient's next appointmen t at the appropriate interval. According to the [employer], yearly mammograms are recommended starting at age 40 and continuing as long as a woman is in good health. Breast MRI is recommended for women with an rosemarie roximately 20-25% or greater lifetime risk of breast cancer, including women with a strong family his tory of breast or ovarian cancer and women who have been treated for Hodgkin's disease. Signer Name: Marilu García MD Signed: 12/27/2020 9:40 AM Workstation Name: [email or web address]
== END 2020-12-27 08:02 | disposition home or self-care (01) ==
LOC: MAMMO 08:01
PROVIDERS: ATTEND Surgery
DX: N60.11 Diffuse cystic mastopathy of right breast (principal); N60.12 Diffuse cystic mastopathy of left breast; N64.4 Mastodynia; Z80.3 Family history of malignant neoplasm of breast

== ENCOUNTER 2021-01-13 12:07 | Outpatient (CLI) | payer BC ==
[2021-01-13 12:59] LABS: Basophils # (Auto) 0.1 K/mm3 (0.0-0.1); Eosinophils # (Auto) 0.3 K/mm3 (0.0-0.4); Eosinophils % (Auto) 4.6 % (0.0-4.3); Hematocrit 36.4 % (30.3-42.9); Hemoglobin 12.3 gm/dl (10.1-14.3); Lymphocytes % (Auto) 33.1 % (13.4-35.0); Mean Corpuscular HGB Conc 34 % (30-34); Mean Corpuscular Volume 82 fl (79-97); Monocytes # (Auto) 0.3 K/mm3 (0.0-0.8); Platelet Count 281 K/mm3 (140-440); Red Blood Count 4.41 M/mm3 (3.65-5.03); Red Cell Distribution Width 14.2 % (13.2-15.2)
[2021-01-13 14:34] LABS: Chol/HDL Ratio 3.15 %
== END 2021-01-13 12:08 | disposition home or self-care (01) ==
LOC: LAB 12:07
PROVIDERS: ATTEND Internal Medicine
DX: R10.0 Acute abdomen (principal)
CPT/HCPCS: 36415; 80061; 82306; 82607; 84443; 85025

== ENCOUNTER 2021-04-20 09:11 | Outpatient (CLI) | payer BC ==
--- NOTE | 2021-04-21 08:50 | Mammography Report ---
DIGITAL SCREENING MAMMOGRAM WITH CAD, 04/20/2021 CLINICAL INFORMATION / INDICATION: Routine screening mammography. TECHNIQUE: Digital bilateral 2D mammography was obtained in the craniocaudal and mediolateral obliqu e projections. This examination was interpreted with the benefit of Computer-Aided Detection analysis . COMPARISON: 03/31/2020, 03/14/2019, 03/11/2018 FINDINGS: Breast Density: There are scattered areas of fibroglandular density. No dominant mass, suspicious calcifications, or architectural distortion in either breast. IMPRESSION: No mammographic evidence of malignancy. Follow up recommendation: Routine yearly BI-RADS Category 1: Negative. A "normal" or negative report should not discourage follow up or biopsy of a clinically significant f inding. A written summary of these findings will be mailed to the patient. The patient will be entered into a mammography reporting system which will generate a reminder letter for the patient's next appointmen t at the appropriate interval. The [employer] recommends yearly mammograms starting at age 40 and continuing as l tyra as a woman is in good health. Breast MRI is recommended for women with an approximate 20-25% or greater lifetime risk of breast cancer, including women with a strong family history of breast or ova desmond cancer or who have been treated for Hodgkin's disease. Signer Name: Shelbi Moore MD Signed: 04/21/2021 8:45 AM Workstation Name: [email or web address]
== END 2021-04-20 09:12 | disposition home or self-care (01) ==
LOC: SPVWC 09:11
PROVIDERS: ATTEND Surgery
DX: Z12.31 Encounter for screening mammogram for malignant neoplasm of breast (principal)
CPT/HCPCS: 77063; 77067

== ENCOUNTER 2021-11-01 11:44 | Outpatient (CLI) | payer BC ==
[2021-11-01 12:31] LABS: Basophils # (Auto) 0.1 K/mm3 (0.0-0.1); Basophils % (Auto) 0.9 % (0.0-1.8); Eosinophils # (Auto) 0.3 K/mm3 (0.0-0.4); Hematocrit 38.8 % (30.3-42.9); Hemoglobin 12.4 gm/dl (10.1-14.3); Lymphocytes # (Auto) 2.3 K/mm3 (1.2-5.4); Lymphocytes % (Auto) 36.1 % (13.4-35.0); Mean Corpuscular HGB Conc 32 % (30-34); Mean Corpuscular Volume 84 fl (79-97); Monocytes # (Auto) 0.3 K/mm3 (0.0-0.8); Monocytes % (Auto) 5.1 % (0.0-7.3); Platelet Count 268 K/mm3 (140-440); Red Blood Count 4.62 M/mm3 (3.65-5.03); Red Cell Distribution Width 15.5 % (13.2-15.2)
[2021-11-01 12:45] LABS: Alanine Aminotransferase 11 units/L (7-56); Blood Urea Nitrogen 19 mg/dL (7-17); Calcium 8.9 mg/dL (8.4-10.2); LDL Cholesterol,Direct 87 mg/dL (50-130)
[2021-11-01 12:46] LABS: Chol/HDL Ratio 2.73 %; HDL Cholesterol 56 mg/dL (40-59); Hemolysis Index 11
[2021-11-01 12:55] LABS: BUN/Creatinine Ratio 27
[2021-11-01 13:08] LABS: Free T4 (Free Thyroxine) 1.07 ng/dL (0.76-1.46)
== END 2021-11-01 11:45 | disposition home or self-care (01) ==
LOC: LAB 11:44
PROVIDERS: ATTEND Internal Medicine
DX: R94.6 Abnormal results of thyroid function studies (principal); I10 Essential (primary) hypertension; E55.9 Vitamin D deficiency, unspecified; E11.9 Type 2 diabetes mellitus without complications; E78.5 Hyperlipidemia, unspecified
CPT/HCPCS: 36415; 80053; 80061; 83036; 84439; 84443; 85025

== ENCOUNTER 2022-05-10 13:52 | Outpatient (CLI) | payer BC ==
--- NOTE | 2022-05-10 15:47 | Cat Scan Report ---
CT HEAD WITHOUT CONTRAST INDICATION / CLINICAL INFORMATION: G44.209. TECHNIQUE: Axial imaging performed from the skull apex through the skull base without the use of cont rast. Sagittal and coronal reformatted images. All CT scans at this location are performed using CT dose reduction for ALARA by means of automated exposure control. COMPARISON: 10/13/2019 FINDINGS: CEREBRAL PARENCHYMA: No significant abnormality. No acute territorial infarct. HEMORRHAGE: None. EXTRA-AXIAL SPACES: Normal in size and morphology for the patient's age. VENTRICULAR SYSTEM: Normal in size and morphology for the patient's age. MIDLINE SHIFT OR HERNIATION: None. CEREBELLUM / BRAINSTEM: No significant abnormality. CALVARIUM: No significant abnormality. ORBITS: Normal as visualized. PARANASAL SINUSES / MASTOID AIR CELLS: Normal as visualized. SOFT TISSUES of HEAD: No significant abnormality. ADDITIONAL FINDINGS: None. IMPRESSION: No acute intracranial abnormality. Cranial CT scan within normal limits. Signer Name: Yonathan Ching Jr, MD Signed: 05/10/2022 3:42 PM Workstation Name: [id number]
== END 2022-05-10 13:53 | disposition home or self-care (01) ==
LOC: CT 13:52
PROVIDERS: ATTEND Internal Medicine
DX: G44.209 Tension-type headache, unspecified, not intractable (principal)
CPT/HCPCS: 70450

== ENCOUNTER 2022-06-01 09:58 | Outpatient (CLI) | payer BC ==
--- NOTE | 2022-06-01 17:00 | Mammography Report ---
DIGITAL SCREENING MAMMOGRAM WITH CAD, 06/01/2022 CLINICAL INFORMATION / INDICATION: Routine screening mammography. SCREENING MAMMOGRAM Z12.31 TECHNIQUE: Digital bilateral 2D mammography was obtained in the craniocaudal and mediolateral obliqu e projections. This examination was interpreted with the benefit of Computer-Aided Detection analysis . COMPARISON: 04/20/2021 03/31/2020 FINDINGS: Breast Density: The breasts are almost entirely fatty. No dominant mass, suspicious calcifications, or architectural distortion in either breast. No interval change. IMPRESSION: No mammographic evidence of malignancy. Follow up recommendation: Routine yearly screening mammogram. BI-RADS Category 1: NEGATIVE A "normal" or negative report should not discourage follow up or biopsy of a clinically significant f inding. A written summary of these findings will be mailed to the patient. The patient will be entered into a mammography reporting system which will generate a reminder letter for the patient's next appointmen t at the appropriate interval. [employer] recommends yearly mammograms starting at age 40 and continuing as l tyra as a woman is in good health. Breast MRI is recommended for women with an approximate 20-25% or greater lifetime risk of breast cancer, including women with a strong family history of breast or ova desmond cancer or who have been treated for Hodgkin's disease. Signer Name: Marilu García MD Signed: 06/01/2022 4:56 PM Workstation Name: [id number]
== END 2022-06-01 09:59 | disposition home or self-care (01) ==
LOC: MAMMO 09:58
PROVIDERS: ATTEND Internal Medicine
DX: Z12.31 Encounter for screening mammogram for malignant neoplasm of breast (principal)
CPT/HCPCS: 77067